=== PATIENT | female | born 1995 | race Caucasian/White ===

== ENCOUNTER 2024-03-31 15:45 | Outpatient (RCR) | payer OTHER, SELFPAY ==
--- NOTE | 2024-01-17 15:25 | OPREHPOC ---
Outpatient Therapy Plan of Care This is a Multidisciplinary Plan of Care that may contain components documented by all disciplines (PT, OT, and ST.) PT Problem 1 PT Problem #1 Knowledge Deficit PT Goal 1 Goal 1. Patient will perform independent HEP Target Visit 3 PT Problem 2 PT Problem #2 Pain PT Goal 1 Goal 1. Pain no higher than 1/10 with 2 finger pelvic floor circumferential stretch in order to allow for tampon use, pap smear, and other medical management Target Visit 5 PT Problem 3 PT Problem #3 Impaired Functional ADLs PT Goal 1 Goal 1. Pt will be able to tolerate tampon use without reports of pain Target Visit 5 PT Problem 4 PT Problem #4 Impaired Strength PT Goal 1 Goal 1. Patient will be able to contract abdominal muscles and hold with leg march Target Visit 5
--- NOTE | 2024-01-17 15:25 | PTOPEVAL1 ---
Assessment and note entered by Yodit Turner DPT Evaluation Information Assessment Status Evaluation ICD-10 Condition Codes (PT) R10.2 Subjective Information Pt reports a 6 month history of pelvic pain, currently unable to tolerate tampon use. Pain stays localized to pelvis, does not seem to radiate. Highest pain recently 7/10 and lowest 0/ 10. Voids less than 10 times a day, none at night. Can hold urge to void up to an hour. Denies urinary incontinence. BM 3 times a day, no pain. Pain with pap smear and intercourse as well. Pt has never been . No other b/b issues, no [employer] issues. Patient goal: help muscles relax, decrease pain Reported Pain Level Pain Score 0: Self Report Assessment PT Clinical Summary The patient is presenting to skilled therapy with a 6 month history of insidious onset pelvic pain. She presents with severe increased pelvic floor muscle tone and pain with palpation, as well as decreased core strength. These impairments are contributing to her pain and inability to tolerate tampon use, pap smear, etc. She will highly benefit from therapy to address her impairments in order to reduce pain and return to full function. Plan of Care Interventions Electrical Stimulation,Hot Pack/Cold Pack,Manual Therapy,Neuro Re-education,Patient/Caregiver Education,Therapeutic Activities,Therapeutic Exercise PT Services Indicated Yes Treatment Frequency and 1 time a week for 5 visits Duration These treatments will address the objective and functional deficits as defined above. The patient will be advanced safely and appropriately in order for the patient to progress towards his/her prior level of function. Additional exercises will be introduced and as well as a comprehensive home exercise program upon discharge, if needed, ?to ensure carryover of functional gains achieved in the clinic. This treatment plan has been reviewed and agreement upon by the patient.
--- NOTE | 2024-02-18 16:13 | OPREHPOC ---
Outpatient Therapy Plan of Care This is a Multidisciplinary Plan of Care that may contain components documented by all disciplines (PT, OT, and ST.) PT Problem 1 PT Problem #1 Knowledge Deficit PT Goal 1 Goal / Goal Update 1. Patient will perform independent HEP Target Visit 3 Progress Met PT Problem 2 PT Problem #2 Pain PT Goal 1 Goal / Goal Update 1. Pain no higher than 1/10 with 2 finger pelvic floor circumferential stretch in order to allow for tampon use, pap smear, and other medical management Target Visit 10 Progress Partially Met PT Problem 3 PT Problem #3 Impaired Functional ADLs PT Goal 1 Goal / Goal Update 1. Pt will be able to tolerate tampon use without reports of pain Target Visit 10 Progress Not Met PT Problem 4 PT Problem #4 Impaired Strength PT Goal 1 Goal / Goal Update 1. Patient will be able to contract abdominal muscles and hold with leg march Target Visit 5 Progress Met
--- NOTE | 2024-02-18 16:13 | PTOPPROG ---
Assessment and note entered by Yodit Turner DPT Evaluation Information Assessment Status Progress Diagnosis n94.10 ICD-10 Condition Codes (PT) R10.2 Subjective Information Pt reports improvements with therapy overall. Highest pain recently 3/10 and lowest 0/10. No attempts at intercourse or tampon use recently. Assessment PT Clinical Summary The patient has made good progress in therapy and reports decreased pain overall. She demonstrates decreased muscle tone and pain with palpation as well as improved core strength. Due to her progress but continued pain, she will benefit from further therapy in order to fully function including tampon use etc. Plan of Care Interventions Hot Pack/Cold Pack,Manual Therapy,Neuro Re- education,Patient/Caregiver Education,Therapeutic Activities,Therapeutic Exercise PT Services Indicated Yes Treatment Frequency and 1 time a week for 5 visits Duration These treatments will address the objective and functional deficits as defined above. The patient will be advanced safely and appropriately in order for the patient to progress towards his/her prior level of function. Additional exercises will be introduced and as well as a comprehensive home exercise program upon discharge, if needed, ?to ensure carryover of functional gains achieved in the clinic. This treatment plan has been reviewed and agreement upon by the patient.
--- NOTE | 2024-03-31 16:10 | OPREHPOC ---
Outpatient Therapy Plan of Care This is a Multidisciplinary Plan of Care that may contain components documented by all disciplines (PT, OT, and ST.) PT Problem 1 PT Problem #1 Knowledge Deficit PT Goal 1 Goal / Goal Update 1. Patient will perform independent HEP Target Visit 3 Progress Met PT Problem 2 PT Problem #2 Pain PT Goal 1 Goal / Goal Update 1. Pain no higher than 1/10 with 2 finger pelvic floor circumferential stretch in order to allow for tampon use, pap smear, and other medical management update 03/31/24 1. 2/10 highest Target Visit 10 Progress Partially Met PT Problem 3 PT Problem #3 Impaired Functional ADLs PT Goal 1 Goal / Goal Update 1. Pt will be able to tolerate tampon use without reports of pain update 03/31/24 1. unable to assess as patient no longer needs to use them, based on exam would likely be pain free Target Visit 10 Progress Met PT Problem 4 PT Problem #4 Impaired Strength PT Goal 1 Goal / Goal Update 1. Patient will be able to contract abdominal muscles and hold with leg march Target Visit 5 Progress Met
--- NOTE | 2024-03-31 16:10 | PTOPDC ---
Assessment and note entered by Yodit Turner DPT Evaluation Information Assessment Status Discharge Diagnosis n94.10 ICD-10 Condition Codes (PT) R10.2 Subjective Information Highest pain recently 2/10 and lowest 0/10. Pain seems to be post-intercourse but has gotten much better. No tampon use as she does not get a period with her current control. Reported Pain Level Pain Score 0: Self Report Assessment PT Clinical Summary The patient reports feeling a lot of improvement with therapy and reports pain only 2/10 at the highest. Has been able to tolerate intercourse and minimal pain with exam this visit. Due to her progress, discharge is recommended at this time. She has been educated to continue HEP and follow up with MD and/or PT as needed. Plan of Care PT Services Indicated No
== END 2024-04-01 07:49 | disposition home or self-care (01) ==
LOC: ANHGOSHPT 15:45
PROVIDERS: PCP Obstetrics & Gynecology; Visit Provider Obstetrics & Gynecology
DX: N94.10 Unspecified dyspareunia (principal)
CPT/HCPCS: 97110; 97112; 97140; 97161; 97530

== ENCOUNTER 2025-05-18 15:47 | Outpatient (CLI) | payer OTHER, BC, SELFPAY | END 2025-05-18 15:48 | disposition home or self-care (01) | LOC: ANHLAB 15:52 | PROVIDERS: Visit Provider Anesthesiology | DX: N83.209 Unspecified ovarian cyst, unspecified side (principal) | CPT/HCPCS: 36415; 86850; 86900; 86901 ==

== ENCOUNTER 2025-05-25 00:37 | Day surgery (SDC) | payer OTHER, BC, SELFPAY ==
[2025-05-14 08:58] VITALS: BMI 36.9
--- NOTE | 2025-05-14 09:09 | PC.NURSE ---
[facility] has started construction of its new state of the art ER which will open Spring 2026. With this, we anticipate parking may be a challenge for some our surgical patients and families. Parking spaces are limited but are available for all Surgical, obstetrics, and ER patients sharing this lot. If you arrive and find you are having a hard time finding a parking space, please note that we understand the challenges, please drive around the hospital and park near Hospital Entrance 1. When you enter this entrance, you can ask a volunteer to direct or take you back to the surgical waiting area to check in. We appreciate everyone?s understanding of these expected challenges while we build for your future. Report to the Outpatient Waiting Room, entrance under the green pavilion located off [address], at time 0700 on date05/25/2025. Planned Procedure Time: 0900.? Time changes happen often and if your time is changed the preop area will call you the afternoon before. - You and your visitor will be asked to self-screen and do not enter if you have any COVID symptoms. Please call surgeon if you need to reschedule. - A mask is optional within the hospital at this time. Patients may have clear liquids (water, carbonated beverages, clear teas, apple juice) until 3 hours prior to surgery with a maximum of 20 ounces. - No food from midnight until time of surgery and no smoking, or chewing tobacco (or any form of nicotine). No chewing gum, candy or mints. Take only the following medications with a SIP of water on the morning of surgery: N/A DO NOT STOP ANY OF YOUR OTHER PRESCRIPTION MEDICATIONS PRIOR TO SURGERY EXCEPT THE FOLLOWING Hold all vitamins and supplements for 3 days per anesthesiologist. Medications to discontinue per physician N/A Please no make-up, nail serbian, hairspray, perfume, deodorant, or body powder the day of surgery.? No jewelry (including any body piercings) or valuables the day of surgery, leave them at home.? Please take a shower or bath the night before, or the morning of, surgery with an antibacterial soap.? Wear comfortable, loose fitting clothing.? - Jewelry must be removed prior to entering the operating room.? Rings and piercings that are not removed may be cut off. - The hospital will not accept responsibility for valuables.? - Please leave all valuables, including medications, at home the day of surgery. If you are going home after surgery, a licensed airport shuttle driver must drive you home.? - NO public transportation without another adult if you receive anesthesia. - We recommend that an adult stay with you for 24 hours following discharge. - We also recommend that you do not drive, make important decision, drink alcoholic beverages, or take any drugs that were not prescribed by your health care provider for at least 24 hours after your discharge time. Follow any additional instructions given to you from your surgeon. Telephone instructions given to ____patient and asked if any additional questions and then verbalized understanding. Patient advised to call surgeon office or pre surgery nurse liaison [phone] if any additional questions.
[2025-05-25] VITALS (9 sets, daily range): BP systolic 102–145; BP diastolic 50–103; PULSE 78–98; RESP 13–20; TEMP 36.6–36.9; O2SAT 95–100
--- NOTE | 2025-05-25 07:59 | P.PNAN_ITS ---
Anes - Initial Pre Proc Eval Procedure: Operation Date: 05/25/25 09:00 Proposed Procedures p Robotic Assisted Laparoscopic Right Ovarian Cystectomy - Suman Pfeiffer MD s Hysteroscopy Dilation and Curettage - Suman Pfeiffer MD Date/Time: 05/25/25 07:59 Surgeon: Suman Pfeiffer MD Pre Op Diagnosis: Rt ovarian cyst, abnormal uterine bleeding Patient Data Age: 29 Gender: F Height: 1.63 m Weight: 97.7 kg Allergies Allergy/AdvReac Type Severity Reaction Status Date / Time Influenza Virus Vaccines Allergy Mild Other Verified 05/14/25 08:57 soy Allergy Mild Hives Verified 05/14/25 08:57 codeine Allergy Unknown Verified 05/14/25 08:57 Home Medications ?Medication ?Instructions ?Recorded ?Confirmed ?Type No Home Medications 05/14/25 05/14/25 H istory Patient hx anesthesia problems: none Family hx anesthesia problems: none Results Review: All pre-operative results and documents have been reviewed as part of the pre- operative evaluation. [facility] Past Medical History Medical History Allergies Surgical History Surgical History H/O arthroscopic knee surgery 2014 Family History Family History Mother Hypertension Family history of elevated blood lipids Family history of diabetes mellitus in first degree relative Grandparent Family history of malignant neoplasm of cervix Diabetes mellitus Family history of malignant neoplasm of male breast Sibling Asthma Social History Social History Smoking status: Never smoker Second hand tobacco smoke exposure: No Alcohol intake: current Alcohol use details: rare Substance use: never Substance use type: does not use Do You Feel Safe in your Home?: Yes Lack of Transportation: No Lack of Food: Never True Current Housing: I Have Housing Concerned About Future Housing: No Difficulty Paying Gas/Electric Bills: No Difficulty Paying for Meds: No Currently Unemployed: No Education: Bachelor's Degree Difficulty w/ Childcare or Family Care: No Living arrangements: with family Occupation/Education: occupation Additional occupation/education comments: [employer] Gender identity (if verbalized by the patient): Female Sexual Orientation (if Verbalized by the Patient): Straight or Heterosexual Spiritual care concerns: No Anes - Eval Final PreProcedure Day of Procedure 05/25/25 07:59 Patient weight: obese Heart: regular rate and rhythm Lungs: clear to auscultation Airway: Mallampati scale class II Neurological: alert and oriented Last oral intake: >/= 8 hours ASA classification: II Emergent: no Anesthetic plan: proceed Anesthesia type and monitoring: general ETT and standard monitoring Results Review: All pre-operative results and documents have been reviewed as part of the pre- operative evaluation. Informed Consent: The patient's anesthetic plan and its attendant risks and benefits were discussed with the patient/family/POA. Questions were solicited and answers provided to the satisfaction of the patient/family/POA.
--- NOTE | 2025-05-25 08:07 | P.HP_ITS ---
H&P: HPI History of Present Illness Date/Time: 05/25/25 08:07 Chief Complaint: Right ovarian cyst abnormal uterine bleeding Narrative: 29-year-old female who presents for robotic assisted right ovarian cystectomy and hysteroscopy D&C. Patient initially reported heavy menses. Patient had pelvic ultrasound to evaluate for structural causes of bleeding. Ultrasound revealed an 8 cm right ovarian cyst. Follow-up ultrasound 1 month later showed persistence of the cyst. Patient does report right lower quadrant pain. Review of Systems Cardiovascular: Cardiovascular: Denies chest pain, Denies leg edema, Denies palpitations, Denies dyspnea and Denies dyspnea on exertion Respiratory: Respiratory: Denies cough, Denies dyspnea and Denies dyspnea on exertion Gastrointestinal: Gastrointestinal: Denies abdominal pain, Denies constipation, Denies diarrhea, Denies nausea and Denies vomiting Genitourinary: Genitourinary: Denies hematuria, Denies urinary frequency, Denies dysuria, Denies pelvic pain, Denies urinary incontinence and Denies vaginal discharge Neurologic: Reports system reviewed and no additional complaints, except as documented Psychiatric: Psychiatric: Reports no additional psychiatric complaints Endocrine: Endocrine: Denies palpitations PMFSH Past Medical History Medical History Allergies Surgical History Surgical History H/O arthroscopic knee surgery 2013 Family History Family History Mother Hypertension Family history of elevated blood lipids Family history of diabetes mellitus in first degree relative Grandparent Family history of malignant neoplasm of cervix Diabetes mellitus Family history of malignant neoplasm of male breast Sibling Asthma Social History Social History Smoking status: Never smoker Second hand tobacco smoke exposure: No Alcohol intake: current Alcohol use details: rare Substance use: never Substance use type: does not use Do You Feel Safe in your Home?: Yes Lack of Transportation: No Lack of Food: Never True Current Housing: I Have Housing Concerned About Future Housing: No Difficulty Paying Gas/Electric Bills: No Difficulty Paying for Meds: No Currently Unemployed: No Education: Bachelor's Degree Difficulty w/ Childcare or Family Care: No Living arrangements: with family Occupation/Education: occupation Additional occupation/education comments: [employer] Gender identity (if verbalized by the patient): Female Sexual Orientation (if Verbalized by the Patient): Straight or Heterosexual Spiritual care concerns: No Meds Home Medications and Allergies Home Medications ?Medication ?Instructions ?Recorded ?Confirmed ?Type No Home Medications 05/14/25 05/14/25 H istory Allergies Allergy/AdvReac Type Severity Reaction Status Date / Time Influenza Virus Vaccines Allergy Mild Other Verified 05/14/25 08:57 soy Allergy Mild Hives Verified 05/14/25 08:57 codeine Allergy Unknown Verified 05/14/25 08:57 Exam Const: General: no acute distress Eyes: EOM: EOMs intact bilaterally Neck: Neck: supple Thyroid: thyroid normal Chest: Breast/axilla inspection: normal inspection of the breasts Breast/axilla palpation: normal palpation of the breasts, normal palpation of the axillae and no axillary lymphadenopathy Resp: Effort & Inspection: normal respiratory effort Auscultation: clear to auscultation bilaterally Cardio: Rate: regular rate Rhythm: regular rhythm GI: Inspection: non-distended GI Palp: Yes Soft to palpation, No Tenderness to palpation present (GI) and No Guarding due to palpation present (GI) Auscultation: normal bowel sounds : General: No bladder normal to palpation External Female Exam: normal external appearance Speculum Exam - Vagina: normal vaginal discharge and No vaginal bleeding Speculum Exam - Cervix: nontender Bimanual exam- vagina & uterus: No bladder normal to palpation and No Cervical tenderness present OB/external & speculum: No vaginal bleeding Skin: General skin exam: normal color and no rashes or lesions noted Neuro: Cognition (Neuro): normal cognition Speech: normal speech Extrem: General: normal to inspection and no edema Psych: Mental Status: mental status grossly normal Affect: normal affect Assessment and Plan Assessment and plan (1) Abnormal uterine bleeding (AUB): Code(s): N93.9 - Abnormal uterine and vaginal bleeding, unspecified Status: Acute Assessment and Plan: 29-year-old female who reports heavy menses despite hormonal contraceptives Patient consented for hysteroscopy D&C Risks, benefits, alternatives discussed (2) Ovarian cyst: Code(s): N83.209 - Unspecified ovarian cyst, unspecified side Status: Acute Assessment and Plan: Patient had pelvic ultrasound to evaluate for abnormal bleeding Ultrasound revealed 8 cm right ovarian cyst Follow-up ultrasound 1 month later showed persistence of cyst Patient elects for surgical management Will plan for robotic assisted right ovarian cystectomy
[2025-05-25 08:08] LABS: Hematocrit 40.1 % (37.0-47.0); Hemoglobin 13.0 g/dL (12.0-15.0); Mean Corpuscular HGB Conc 32.4 g/dl (32-36); Mean Corpuscular Hemoglobin 28.7 pg (26-34); Mean Corpuscular Volume 88.5 fl (80-100); Platelet Count Result 458 k/mm3 (150-375); Red Blood Count 4.53 M/mm3 (4.2-5.4); White Blood Count 9.5 K/mm3 (4.5-10.0)
--- NOTE | 2025-05-25 08:11 | WPDHPUPDATE1 ---
History and Physical Update Update Date/Time: 05/25/25 08:11 History and Physical has been reviewed, including an updated exam of the patient. There are NO changes in the patient's condition. Risks, benefits, and alternatives have been discussed and questions answered. Patient agrees to proceed with procedure.
[2025-05-25] MEDS: LACTATED RINGERS 1,000 ML 30 ML IV CONT ×2 (08:15→09:52)
[2025-05-25] MEDS: ACETAMINOPHEN 500 MG TABLET 1000 MG PO (08:15)
[2025-05-25] MEDS: SCOPOLAMINE 1 MG PATCH 1 PATCH TRANSDERM (08:15)
[2025-05-25] MEDS: KETOROLAC 15 MG/ML VIAL (*BKC) IV PUSH (08:15)
[2025-05-25] MEDS: LIDO 1%/EPINEPHRINE 1:100,000 50 ML VIAL (09:18)
--- NOTE | 2025-05-25 09:44 | P.OP_ITS ---
Procedure Note - Detailed Date of Procedure 05/25/25 Pre-op Diagnosis Rt ovarian cyst, abnormal uterine bleeding Post-op Diagnosis Same Procedure Performed Robotic assisted Right ovarian cystectomy hysteroscopy dilation & curettage Surgeon Suman Pfeiffer MD Anesthesia General Indications Right ovarian cyst abnormal uterine bleeding Findings large simple appearing right ovarian cyst with clear cystic fluid normal appearing intrauterine cavity. Normal tubal ostia bilaterally Description of Procedure PROCEDURE: After the patient was appropriately consented she was taken to the operating room where she was transferred to the table in a dorsal supine position. General anesthesia was then induced with endotracheal intubation. The patient was transferred to a dorsal lithotomy position using adjustable yellow-fin stirrups. Her position was adjusted for appropriate support of her lower back and lower extremities. The patient was prepped and draped. A transurethral crabtree catheter was place. The cervix was grasped with a tenaculum and an acorn maniupulator was placed. Gloves were changed. After confirmation of a functioning orogastric tube, lidocaine was injected at Dennison's point in the LUQ and a 5mm incision was made. A 5mm Optiview trocar was then inserted into the abdominal cavity under direct visualization and done so without complication. The abdomen was then insufflated with approximately 2-3L of CO2 establishing a pneumoperitoneum and the patient was placed in Trendelenburg position. Just above the umbilicus in the midline, a 10mm incision made after injection of lidocaine and a 12mm bladeless trocar advanced into the abdominal cavity under direct visualization without incident. We subsequently placed two robotic ports in a similar fashion, one in the left mid-quadrant and one in the right, 10cm lateral to the midline port. The robot was then docked. The pelvis was inspected and the above finding were noted. The right ovary and cyst were grasped and a linear incision was made over the cyst. Clear cystic fluid was drained. The cyst wall was then identified and grasped with a bipolar grasper. The cyst wall was then dissected away from the ovary. The cyst wall was removed completely. The bed of the ovary was then irrigated. Hemaderm surgical powder was placed in the surgical bed to ensure excellent hemostasis. The cyst wall was then placed in an endopouch bag and removed from the abdomen. Again the abdomen was copiously irrigated. The laparoscopic portion of the procedure was then ended. Attention was then turned to the pelvis. The [place] manipulator was removed. Hys teroscopy, using a normal saline medium, was performed and showed the above findings. Sharp uterine curettage was then performed and tissue placed on Telfa. The tenaculum was removed and hemostasis was observed. The patient tolerated the procedure well. Sponge, lap, and needle counts were correct. The patient had SCD's on throughout the case for VTE prophylaxis. The patient was taken to the recovery room in stable condition. Estimated Blood Loss 5 Urine Output 300 Drains No Packing No Pathology Yes (endometrial curettings , right ovarian cyst wall) Complications No immediate complications Condition Stable Disposition PACU [facility] Billing Surgery - Charge Forward: Surgery Billing
--- NOTE | 2025-05-25 09:58 | S_PTH ---
PATIENT: Lisa Hale LOC: [facility] U#:[id number] AGE/SX: 29/F ROOM: RE05/25/[address]: Suman Pfeiffer MD : 1995 BED: DIS: 05/25/2025 SPEC #: [id number] RECD: 05/25/25 11:49 STATUS: WANDA REQ #: [id number] DARLIN: 05/25/25 09:[address]: Smuan Pfeiffer DEPT: [facility] Surgical RECD BY: Angella Muniz ENTERED: 05/25/25 11:50 SP TYPE: Surgical OTHR DR: PHYSICIAN NOT ON STAFF Tissues: A - Endometrial Curettings B - Cyst Procedures: Hematoxylin and Eosin Stain Gross and Microscopic Level 4
[2025-05-25] MEDS: fentaNYL CITRATE INJ (*CRX) 100 MCG/2 ML VIAL 25 MCG IV PUSH ×4 (10:14→10:36)
[2025-05-25] MEDS: oxyCODONE HCL (*CRX) 5 MG TAB IR PO (11:05)
[2025-05-25 11:52] LABS: BEDSIDEPREGUCG Negative (Negative)
== END 2025-05-25 12:07 | disposition home or self-care (01) ==
PROVIDERS: Visit Provider Student in an Organized Health Care Education/Training Program
PROC: 8E0W4CZ Robotic Assisted Procedure of Trunk Region, Percutaneous Endoscopic Approach (ICD-10-PCS; CPT 49320; principal; 2025-05-25 09:00)
PROC: 0U5B8ZZ Destruction of Endometrium, Via Natural or Artificial Opening Endoscopic (ICD-10-PCS; CPT 58563; 2025-05-25 09:00)
DX: D27.0 Benign neoplasm of right ovary (principal); E66.9 Obesity, unspecified; Z68.37 Body mass index [BMI] 37.0-37.9, adult; Z98.890 Other specified postprocedural states; Z80.49 Family history of malignant neoplasm of other genital organs; Z80.3 Family history of malignant neoplasm of breast
CPT/HCPCS: 58662; 58558; S2900; 36415; 85027; 88305; A9270; J1100; J1171; J1885; J2003; J2004; J2250; J2405; J2704; J3010; J7030; J7120